=== PATIENT | male | born 1950 | race Caucasian/White ===

== ENCOUNTER → 2018-01-31 | Outpatient (CLI) | payer OTHER | LOC: CIMAGING 13:22 | PROVIDERS: ATTEND Physician Assistant Medical | DX: M20.11 Hallux valgus (acquired), right foot (principal); M77.31 Calcaneal spur, right foot; M23.91 Unspecified internal derangement of right knee | CPT/HCPCS: 73562-PO; 73630-PO ==

== ENCOUNTER → 2018-04-18 | Outpatient (CLI) | payer OTHER | LOC: BHCLAF 13:30 | PROVIDERS: ATTEND Internal Medicine Cardiovascular Disease | DX: I48.0 Paroxysmal atrial fibrillation (principal); Z87.891 Personal history of nicotine dependence | CPT/HCPCS: 93005-PO ==

== ENCOUNTER → 2018-05-09 | Outpatient (CLI) | payer OTHER ==
[~2018-05-09] MED LIST: IOPAMIDOL (ISOVUE-300) 100 ML BTL ONE
== END ==
LOC: CIMAGING 12:15
PROVIDERS: ATTEND Internal Medicine Cardiovascular Disease
DX: R06.02 Shortness of breath (principal); R05 Cough; R91.1 Solitary pulmonary nodule
CPT/HCPCS: 71046; 71260; Q9967; 82565-PO

== ENCOUNTER → 2018-05-23 | Outpatient (CLI) | payer OTHER | LOC: BHLMT 14:45 | PROVIDERS: ATTEND Internal Medicine Cardiovascular Disease | DX: R06.02 Shortness of breath (principal); E11.9 Type 2 diabetes mellitus without complications; I10 Essential (primary) hypertension; F17.201 Nicotine dependence, unspecified, in remission | CPT/HCPCS: 76775-PO; 93306-PO ==